=== PATIENT | female | born 1965 | race Asian ===

== ENCOUNTER 2016-07-30 18:08 | Emergency (ER) | payer OTHER ==
[~2016-07-30] VITALS: Ht 152.4 cm; Wt 78.5 kg
[2016-07-30 19:22] VITALS: BP 176/97
== END 2016-07-30 21:28 | disposition home or self-care (01) ==
LOC: ED 18:08
DX: M54.42 Lumbago with sciatica, left side (principal); E11.9 Type 2 diabetes mellitus without complications; I10 Essential (primary) hypertension
CPT/HCPCS: J1885